=== PATIENT | male | born 1995 | race Caucasian/White ===

== ENCOUNTER 2016-09-26 20:27 | Emergency (ER) | payer OTHER ==
[2016-09-26 20:44] VITALS: BP 124/60; PULSE 74; TEMP 97.9; BMI 37.3
--- NOTE | 2016-09-26 22:12 | PDOC ---
History of Present Illness - General Chief Complaint: Injury Stated Complaint: RT ANKLE INJURY Time Seen by Provider: 09/26/16 21:50 History Source: Patient Exam Limitations: No Limitations - History of Present Illness Initial Comments: 09/26/16 23:00 Pt. is a 21 y/o male with PMH of R ankle sprain who presents to the ED c/o R ankle pain. Pt. states he was walking when he rolled his ankle. He states that his ankle is swollen and it hurts to put weight on the ankle. He rates the pain a 4/10. Denies numbness, tingling, weakness of the foot. Denies falling, LOC, head trauma. Past History - Travel Traveled outside of the country in the last 30 days: No Close contact w/someone who was outside of country & ill: No - Past Medical History Allergies/Adverse Reactions: Allergies Allergy/AdvReac Type Severity Reaction Status Date / Time No Known Allergies Allergy Verified 02/19/15 18:32 Home Medications: Ambulatory Orders NK [No Known Home Medication] 11/24/13 - Psycho/Social/Smoking Cessation Hx Suicidal Ideation: No Smoking History: Never smoked Hx Alcohol Use: No Drug/Substance Use Hx: No Substance Use Type: None Review of Systems - Review of Systems Constitutional: No: Chills, Fever, Weakness Musculoskeletal: Yes: Joint Pain (R ankle), Joint Swelling (R ankle). No: Joint Stiffness Integumentary: No: Bruising, Rash Neurological: No: Numbness, Tingling, Weakness *Physical Exam - Vital Signs Last Vital Signs Temp Pulse Resp BP Pulse Ox 97.9 F 74 16 124/60 99 09/26/16 20:42 09/26/16 20:42 09/26/16 20:42 09/26/16 20:42 09/26/16 20:42 - Physical Exam General Appearance: Yes: Nourished, Appropriately Dressed. No: Apparent Distress Vascular Pulses: Dorsalis-Pedis (R): 2+, Doralis-Pedis (L): 2+ Extremity: positive: Normal Capillary Refill, Normal Inspection, Normal Range of Motion, Tender (TTP R lateral malleolus, R medial malleolus and R navicular bone.), Swelling (R lateral malleolus). negative: Calf Tenderness, Erythema Integumentary: positive: Normal Color, Dry, Warm. negative: Bruising Neurologic: positive: solutions manager II-XII NML intact, Fully Oriented, Alert, Normal Mood/ Affect, Normal Response, Motor Strength 08/17 ED Treatment Course - RADIOLOGY Radiology Studies Ordered: Category Date Time Status ANKLE & FOOT-RIGHT* [RAD] Stat Radiology 09/26/16 21:55 Ordered Medical Decision Making - Medical Decision Making 09/26/16 22:06 Pt. is a 21 y/o male who presents to the ED with R ankle pain. Given point tenderness and swelling of the ankle will obtain ankle x-ray. Will give motrin for pain. Re-evaluate 09/26/16 23:01 X-ray is negative for fracture at this time. Shows mild soft tissue swelling over the lateral malleolus. Will discharge home with instructions for an ankle sprain. Pt. understands all discharge instructions and all questions were answered at this time. *DC/Admit/Observation/Transfer Diagnosis at time of Disposition: Ankle sprain Qualifiers: Encounter type: initial encounter Involved ligament of ankle: unspecified ligament Laterality: right Qualified Code(s): S93.401A - Sprain of unspecified ligament of right ankle, initial encounter - Discharge Dispostion Disposition: HOME Condition at time of disposition: Stable Admit: No - Patient Instructions Printed Discharge Instructions: DI for Ankle Sprain Additional Instructions: You have an ankle sprain. Your x-ray was negative for fractures. You were given an VIVEK wrap. Wear the VIVEK wrap for support and to help reduce the swelling. Wear shoes with good ankle support such as sneakers. Keep your leg elevated when resting. Use ice to help reduce the swelling. You should use the ice in 20 minutes at a time and then leave the ice off for 20 minutes at a time. You may take tylenol or motrin as needed for pain. Return to the ED if you have increased pain not managed by pain medication, or if you have any other changes in your symptoms - Post Discharge Activity Work/School Note: Back to Work
[2016-09-26] MEDS ORDERED: IBUPROFEN 600 MG TABLET (FP) PO ONE ×2 (22:45→22:47)
== END 2016-09-26 23:08 | disposition home or self-care (01) ==
LOC: JERFT 20:27
DX: S93.401A Sprain of unspecified ligament of right ankle, initial encounter (principal); X50.1XXA Overexertion from prolonged static or awkward postures, initial encounter; Y93.01 Activity, walking, marching and hiking; Y92.89 Other specified places as the place of occurrence of the external cause
CPT/HCPCS: 73610-TC-RT; 73630-TC-RT; 99281-25

== ENCOUNTER 2016-12-20 21:44 | Emergency (ER) | payer OTHER ==
[2016-12-20 21:53] VITALS: BP 150/79; PULSE 69; TEMP 97.4; BMI 33.9
[2016-12-20] MEDS ORDERED: KETOROLAC TROMETHAMINE 60 MG/2 ML VIAL IM ONE (22:26)
[2016-12-20] MEDS ORDERED: KETOROLAC TROMETHAMINE 60 MG/2 ML VIAL ONE (22:28)
--- NOTE | 2016-12-20 22:31 | PDOC ---
History of Present Illness - General Chief Complaint: Pain Stated Complaint: PAIN Time Seen by Provider: 12/20/16 21:58 History Source: Patient Exam Limitations: No Limitations - History of Present Illness Initial Comments: 12/20/16 22:28 Patient came to emergency department with complaints of right shoulder pain. States started 1 month ago but spontaneously resolved, but pain reoccurred 2 days ago and has progressively worsened. 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 States is more painful with abduction and forward flexion, denies numbness or tingling to hands 12/20/16 22:33 12/20/16 22:38 Occurred: reports: other Severity: reports: mild, moderate Pain Location: reports: upper extremity (right shoulder ) Past History - Travel Traveled outside of the country in the last 30 days: No Close contact w/someone who was outside of country & ill: No - Past Medical History Allergies/Adverse Reactions: Allergies Allergy/AdvReac Type Severity Reaction Status Date / Time No Known Allergies Allergy Verified 12/20/16 21:49 Home Medications: Ambulatory Orders Naproxen [Naprosyn -] 500 mg PO BID #20 tablet 12/20/16 Other medical history: Pt denies - Psycho/Social/Smoking Cessation Hx Suicidal Ideation: No Smoking History: Never smoked Have you smoked in the past 12 months: No Information on smoking cessation initiated: No Hx Alcohol Use: No Drug/Substance Use Hx: No Substance Use Type: None Trauma Specific PMHX - Complaint Specific PMHX Back Injury: Yes Review of Systems - Review of Systems Able to Perform ROS?: Yes Is the patient limited Occitan proficient: Yes Constitutional: Yes: See HPI. No: Symptoms Reported, Chills, Fever HEENTM: No: Symptoms Reported Respiratory: No: Symptoms reported Musculoskeletal: Yes: Symptoms Reported, See HPI, Joint Pain, Muscle Pain (to right upper shoulder ) Integumentary: Yes: Symptoms Reported All Other Systems: Reviewed and Negative *Physical Exam - Vital Signs Last Vital Signs Temp Pulse Resp BP Pulse Ox 97.4 F L 69 18 150/79 98 12/20/16 21:51 12/20/16 21:51 12/20/16 21:51 12/20/16 21:51 12/20/16 21:51 - Physical Exam General Appearance: Yes: Nourished, Appropriately Dressed, Apparent Distress, Mild Distress HEENT: positive: JULIETTE, Normal ENT Inspection, TMs Normal, Pharynx Normal Neck: positive: Supple, Lymphadenopathy (R), Lymphadenopathy (L). negative: Tender Respiratory/Chest: positive: Lungs Clear, Normal Breath Sounds. negative: Chest Tender Cardiovascular: positive: Regular Rate Gastrointestinal/Abdominal: positive: Normal Bowel Sounds, Tender, Soft Musculoskeletal: positive: Normal Inspection Extremity: positive: Normal Capillary Refill, Normal Inspection, Tender. negative: Normal Range of Motion (limited range of motion secondary to pain at upper bicep area with reproduce tenderness with palpation to bicep tendon and insertion at shoulder capsule. Has mild fullness but no true swelling, pain is reproduced against resistance at bicep tendon superior aspect. No crepitus or step-offs, no bony tenderness.) Integumentary: positive: Normal Color, Dry Neurologic: positive: travel guide II-XII NML intact, Fully Oriented, Alert, Normal Mood/ Affect, Normal Response, Motor Strength 5/5 Progress Note - Progress Note Progress Note: Bicep tendinitis, will treat with NSAIDs and have follow up with Orth O as needed *DC/Admit/Observation/Transfer Diagnosis at time of Disposition: Biceps tendinitis of right shoulder - Discharge Dispostion Disposition: HOME Condition at time of disposition: Stable Admit: No - Patient Instructions Printed Discharge Instructions: DI for Shoulder Tendinopathy Additional Instructions: Rest, ice to area on and off for 15 minutes 4-6 times a day Avoid heavy lifting or exercise until pain and swelling is resolved or until further directed Keep area highly elevated to reduce swelling Use splints/Yomi wrap as directed Followup with orthopedist in one to 2 days if not improving, if significantly improved may wait one week for followup with orthopedist May use ibuprofen 2-200 mg tablets every 6 hours as needed for pain - Post Discharge Activity Work/School Note: Back to Work
== END 2016-12-20 22:41 | disposition home or self-care (01) ==
LOC: JERFT 21:44
PROC: 3E0233Z Introduction of Anti-inflammatory into Muscle, Percutaneous Approach (ICD-10-PCS; principal; 2016-12-20)
DX: M75.21 Bicipital tendinitis, right shoulder (principal); X50.0XXA Overexertion from strenuous movement or load, initial encounter; X50.9XXA Other and unspecified overexertion or strenuous movements or postures, initial encounter; Y93.89 Activity, other specified; Y92.59 Other trade areas as the place of occurrence of the external cause; Y99.0 Civilian activity done for income or pay
CPT/HCPCS: 99281-25

== ENCOUNTER 2018-01-01 23:11 | Emergency (ER) | payer OTHER ==
[2018-01-01 23:15] VITALS: BP 123/79; PULSE 82; TEMP 97; BMI 33.9
[2018-01-02] MEDS ORDERED: IBUPROFEN 600 MG TABLET (FP) PO ONE ×2 (01:19→01:39)
--- NOTE | 2018-01-02 01:39 | PDOC ---
History of Present Illness - General Chief Complaint: Pain Stated Complaint: HAND INJURY History Source: Patient - History of Present Illness Initial Comments: 01/02/18 03:16 22 year old male c/o left 4th and 5th digit PIP joint pain. 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 denies injury/ trauma Past History - Past Medical History Allergies/Adverse Reactions: Allergies Allergy/AdvReac Type Severity Reaction Status Date / Time No Known Allergies Allergy Verified 01/01/18 23:15 Home Medications: Ambulatory Orders Naproxen [Naprosyn -] 500 mg PO BID #20 tablet 12/20/16 COPD: No - Suicide/Smoking/Psychosocial Hx Smoking History: Never smoked Have you smoked in the past 12 months: No Hx Alcohol Use: No Drug/Substance Use Hx: No Substance Use Type: None Trauma Specific PMHX - Complaint Specific PMHX Back Injury: Yes Review of Systems - Review of Systems Musculoskeletal: Yes: Other (finger pain) *Physical Exam - Vital Signs Last Vital Signs Temp Pulse Resp BP Pulse Ox 97 F L 82 18 123/79 98 01/01/18 23:12 01/01/18 23:12 01/01/18 23:12 01/01/18 23:12 01/01/18 23:12 - Physical Exam General Appearance: Yes: Appropriately Dressed Extremity: positive: Other (left 4th and 5th digit PIP joint pain, pain with bending / rom) Integumentary: positive: Normal Color, Dry, Warm Neurologic: positive: Fully Oriented, Alert, Normal Mood/Affect Progress Note - Progress Note Progress Note: A: finger pain P: xray NSAIDS outpatient ortho follow up given *DC/Admit/Observation/Transfer Diagnosis at time of Disposition: Pain, Finger pain, left - Discharge Dispostion Disposition: HOME - Referrals Referrals: Kimberly Gaytan MD [Primary Care Provider] - Amarjit Glass MD [Staff Physician] - Call tomorrow - Patient Instructions Printed Discharge Instructions: Finger Sprain Additional Instructions: you may take ibuprofen every 6 hours for pain follow up with your doctor as soon as possible. - Post Discharge Activity Forms/Work/School Notes: Back to Work
== END 2018-01-02 03:23 | disposition home or self-care (01) ==
LOC: JER 23:11
DX: Z53.21 Procedure and treatment not carried out due to patient leaving prior to being seen by health care provider (principal)
CPT/HCPCS: 73130-TC-LR-FY; 99282-25